=== PATIENT | female | born 1995 | race Two or more races ===

== ENCOUNTER → 2023-09-10 09:10 | Outpatient (REF) | payer MEDICAID, SELFPAY ==
--- NOTE | 2023-09-10 09:15 | HM_ITS ---
* Total monitoring time 2 days. * Underlying rhythm is sinus with an average rate of 76/Min. Range 46 to 146/Min. * Rare supraventricular ectopy. One isolated ventricular ectopic beat. * No significant pauses or AV blocks. * Palpitations/chest pain in patient diary correlates with sinus rhythm. MTDD
== END ==
LOC: HO.CARD 09:10
PROVIDERS: PCP Family Medicine; Visit Provider Family Medicine
DX: R00.2 Palpitations (principal)
CPT/HCPCS: 93225

== ENCOUNTER → 2023-09-10 09:15 | Outpatient (BNV) | payer MEDICAID, SELFPAY | PROVIDERS: PCP Family Medicine; Visit Provider Internal Medicine | DX: I47.10 Supraventricular tachycardia, unspecified (principal) | CPT/HCPCS: 93227 ==